=== PATIENT | male | born 1965 | race American Indian/Alaskan Native ===

== ENCOUNTER 2017-04-19 16:18 | Emergency (ER) | payer OTHER ==
[2017-04-19 16:24] VITALS: RESP 18; TEMP 98.2; O2SAT 100; BMI 32.3
--- NOTE | 2017-04-19 16:33 | ED PDOC ---
Arrival/HPI - General Time Seen by Provider: 04/19/17 16:30 Historian: Patient - History of Present Illness Narrative History of Present Illness (Text): 04/19/17 16:32 This 51 yo male presents to this ED c/o right ankle injury and pain x 7 days. Patient stated he tripped with cat at home, causing to twisted ankle "wrong". Denies dizziness, lynn, diplopia, dysarthria, sob, neck pain, cp, abdominal pain, knee pain, hip pain, back pain, or calf pain. Time/Duration: 1 week Quality: Aching Context: Home Past Medical History - Provider Review Nursing Documentation Reviewed: Yes - Cardiac Hx Hypertension: Yes - Pulmonary Hx Asthma: Yes - Neurological Hx Neurological Disorder: No - HEENT Hx HEENT Disorder: No - Renal Hx Renal Disorder: No - Endocrine/Metabolic Hx Endocrine Disorders: No - Hematological/Oncological Hx Blood Disorders: No - Integumentary Hx Dermatological Disorder: No - Musculoskeletal/Rheumatological Hx Musculoskeletal Disorders: No - Gastrointestinal Hx Gastrointestinal Disorders: No - Genitourinary/Gynecological Hx Genitourinary Disorders: No - Psychiatric Hx Psychophysiologic Disorder: No Hx Substance Use: No - Anesthesia Hx Anesthesia: No Hx Anesthesia Reactions: No Hx Malignant Hyperthermia: No Family/Social History - Physician Review Nursing Documentation Reviewed: Yes Family/Social History: No Known Family HX Smoking Status: Unknown If Ever Smoked Hx Alcohol Use: No Hx Substance Use: No Allergies/Home Meds Allergies/Adverse Reactions: Allergies Penicillins Allergy (Verified 12/14/15 01:22) RASH Review of Systems - Review of Systems Constitutional: Normal. absent: Fatigue, Weight Change, Fevers Eyes: Normal ENT: Normal Respiratory: Normal. absent: SOB, Cough Cardiovascular: Normal. absent: Chest Pain, Palpitations, Edema Gastrointestinal: Normal. absent: Abdominal Pain, Nausea, Vomiting Genitourinary Male: Normal Musculoskeletal: Other (right ankle pain) Skin: Normal. absent: Rash, Pruritis Neurological: Normal. absent: Headache, Dizziness, Focal Weakness, Speech Changes, Facial Droop, Disequilibrium, Seizure Endocrine: Normal Hemo/Lymphatic: Normal Psychiatric: Normal Physical Exam Vital Signs Temp Pulse Resp BP Pulse Ox 04/19/17 17:51 89 18 155/79 H 100 04/19/17 16:23 98.2 F 95 H 18 158/85 H 100 Temperature: Afebrile Blood Pressure: Normal Pulse: Regular Respiratory Rate: Normal Appearance: Positive for: Well-Appearing, Non-Toxic, Comfortable Pain Distress: None Mental Status: Positive for: Alert and Oriented X 3 - Systems Exam Head: Present: Atraumatic, Normocephalic Pupils: Present: PERRL Extroacular Muscles: Present: EOMI Conjunctiva: Present: Normal Mouth: Present: Moist Mucous Membranes Neck: Present: Normal Range of Motion Respiratory/Chest: Present: Clear to Auscultation, Good Air Exchange. No: Respiratory Distress, Accessory Muscle Use Cardiovascular: Present: Regular Rate and Rhythm, Normal S1, S2. No: Murmurs Abdomen: Present: Normal Bowel Sounds. No: Tenderness, Distention, Peritoneal Signs Back: Present: Normal Inspection Upper Extremity: Present: Normal Inspection, Normal ROM, NORMAL PULSES, Neurovascularly Intact, Capillary Refill < 2s. No: Cyanosis, Edema Lower Extremity: Present: NORMAL PULSES, Tenderness, Swelling, Deformity (right ankle), Neurovascularly Intact, Capillary Refill < 2 s. No: Edema, CALF TENDERNESS, Normal ROM, Erythema, Temperature Abnormalties Neurological: Present: GCS=15, CN II-XII Intact, Speech Normal, Motor Func Grossly Intact, Normal Sensory Function, Normal Cerebellar Funct, Gait Normal, Memory Normal Skin: Present: Warm, Dry, Normal Color. No: Rashes Psychiatric: Present: Alert, Oriented x 3 Medical Decision Making ED Course and Treatment: 04/19/17 17:25 Dr. Yepez Orthopedist is at bedside He recommended a posterior splint, crutches, and to call his office tomorrow for appointment next week. Patient understood plan. Re-evaluation Time: 18:07 Reassessment Condition: Re-examined, Improved - RAD Interpretation Narrative RAD Interpretations (Text): Accession No. : [id number] Patient Name / ID : DREW VIRAMONTES / [id number] Exam Date : 04/19/2017 17:02:24 ( Approved ) Study Comment : Sex / Age : M / 51Y Creator : Mariana Palma MD Dictator : Mariana Palma MD Generation Engineering Technologist : Blasting Machine Operator : Mariana Palma MD Approver2 : Report Date : 04/19/2017 17:47:30 My Comment : PROCEDURE: Radiographs of the right tibia and fibula. Radiographs of the right ankle. HISTORY: pain r/o fx COMPARISON: None available. FINDINGS: Oblique distal comminuted fibular fracture with intra-articular extension. Fracture deformity of the medial malleolus. Disruption of ankle mortise. Associated soft tissue swelling. No evidence of radiopaque foreign body. IMPRESSION: Oblique distal comminuted fibular fracture with intra-articular extension. Fracture deformity of the medial malleolus. Disruption of ankle mortise. Associated soft tissue swelling. Radiology Orders: 04/19/17 16:30 ANKLE RIGHT 3 VIEWS ROUTINE [RAD] Stat 04/19/17 16:39 TIBIA FIBULA RIGHT [RAD] Stat 04/19/17 16:40 CHEST ONE VIEW [RAD] Stat - Medication Orders Current Medication Orders: Discontinued Medications Ketorolac Tromethamine (Toradol) 15 mg IM STAT STA Stop: 04/19/17 16:32 Last Admin: 04/19/17 17:27 Dose: 15 mg - Procedure PROCEDURE NOTE (Text): PROCEDURE: SPLINT APPLICATION Applied by Manager Order, supervised by Emergency Provider. Location: right posterior short leg splint Procedure: The area of the splint was appropriately positioned. A 4 inch ortho glass posterior splint was applied. Post-procedure: Good position. Neurovascular status remains intact. Capillary refill < 2 sec. Patient tolerated the procedure well with no immediate complications. Disposition/Present on Arrival - Present on Arrival Any Indicators Present on Arrival: No History of DVT/PE: No History of Uncontrolled Diabetes: No Urinary Catheter: No History Surgical Site Infection Following: None - Disposition Have Diagnosis and Disposition been Completed?: Yes Diagnosis: Fracture of distal fibula Disposition: HOME/ ROUTINE Disposition Time: 18:08 Patient Plan: Discharge Condition: GOOD Discharge Instructions (ExitCare): Ankle Fracture (ED) Additional Instructions: Call Dr. Yepez Office to set up appointment for next week. Keep splint clean and dry, and use crutches. Keep ankle elvated, rest. Return to emergency if symptoms worsen. Prescriptions: Ibuprofen [Motrin] 600 mg PO Q8 PRN #20 tab PRN Reason: Pain, Severe (8-10) Referrals: Sveta Weaver MD [Primary Care Provider] - Follow up with primary Raul Yepez DO [Staff Provider] - Follow up with primary Forms: WORK NOTE
--- NOTE | 2017-04-19 17:36 | RAD ---
HISTORY: cough COMPARISON: Chest x-ray performed 12/14/15 TECHNIQUE: Chest, one view. FINDINGS: LUNGS: No focal consolidation. Please note that chest x-ray has limited sensitivity for the detection of pulmonary masses. PLEURA: No significant pleural effusion identified. No definite pneumothorax . CARDIOVASCULAR: Heart size appears within normal limits. OSSEOUS STRUCTURES: Degenerative changes. VISUALIZED UPPER ABDOMEN: Mild elevation of the right hemidiaphragm. OTHER FINDINGS: None. IMPRESSION: No focal consolidation, significant pleural effusion, or definite pneumothorax identified.
--- NOTE | 2017-04-19 17:48 | RAD ---
PROCEDURE: Radiographs of the right tibia and fibula. Radiographs of the right ankle. HISTORY: pain r/o fx COMPARISON: None available. FINDINGS: Oblique distal comminuted fibular fracture with intra-articular extension. Fracture deformity of the medial malleolus. Disruption of ankle mortise. Associated soft tissue swelling. No evidence of radiopaque foreign body. IMPRESSION: Oblique distal comminuted fibular fracture with intra-articular extension. Fracture deformity of the medial malleolus. Disruption of ankle mortise. Associated soft tissue swelling. If symptoms persist, or if there is continued clinical concern, x-ray follow-up in 7-10 days should be considered.
[2017-04-19 17:52] VITALS: BP 155/79; PULSE 89
== END 2017-04-19 18:35 | disposition home or self-care (01) ==
LOC: ED 16:18
DX: S82.491A Other fracture of shaft of right fibula, initial encounter for closed fracture (principal); W01.0XXA Fall on same level from slipping, tripping and stumbling without subsequent striking against object, initial encounter; Y93.89 Activity, other specified; Y92.009 Unspecified place in unspecified non-institutional (private) residence as the place of occurrence of the external cause
CPT/HCPCS: 29515; 71010; 73590; 73610; 96372; 99285; J1885

== ENCOUNTER 2017-04-24 11:38 | Observation (INO) | payer OTHER ==
[2017-04-24 11:46] VITALS: BMI 30.8
--- NOTE | 2017-04-24 11:54 | ED PDOC ---
Arrival/HPI - General Chief Complaint: Lower Extremity Problem/Injury Time Seen by Provider: 04/24/17 11:48 Historian: Patient - History of Present Illness Narrative History of Present Illness (Text): 04/24/17 11:50 A 51 year old male presents to the emergency department for evaluation after a mechanical fall. Patient notes he hit his left knee but denies any head trauma, loss of consciousness, back pain, neck pain, other trauma or injuries at this time. Patient states he did not hit his right ankle, which was broken from a previous fall. He mentions he is scheduled for right ankle surgery tomorrow. PMD: Dr. Melvin Time/Duration: Prior to Arrival Symptom Onset: Sudden Symptom Course: Unchanged Quality: Other Activities at Onset: Light Context: Home Past Medical History - Provider Review Nursing Documentation Reviewed: Yes - Cardiac Hx Hypertension: Yes - Pulmonary Hx Asthma: Yes - Neurological Hx Neurological Disorder: No - HEENT Hx HEENT Disorder: No - Renal Hx Renal Disorder: No - Endocrine/Metabolic Hx Endocrine Disorders: No - Hematological/Oncological Hx Blood Disorders: No - Integumentary Hx Dermatological Disorder: No - Musculoskeletal/Rheumatological Hx Musculoskeletal Disorders: No - Gastrointestinal Hx Gastrointestinal Disorders: No - Genitourinary/Gynecological Hx Genitourinary Disorders: No - Psychiatric Hx Psychophysiologic Disorder: No Hx Substance Use: No - Anesthesia Hx Anesthesia: No Hx Anesthesia Reactions: No Hx Malignant Hyperthermia: No Family/Social History - Physician Review Nursing Documentation Reviewed: Yes Family/Social History: Unknown Family HX Smoking Status: Unknown If Ever Smoked Hx Alcohol Use: No Hx Substance Use: No Allergies/Home Meds Allergies/Adverse Reactions: Allergies Penicillins Allergy (Verified 12/14/15 01:22) RASH Home Medications: Home Meds Medication Instructions Recorded Confirmed Budesonide/Formoterol Fumarate 1 puff IH BID 04/24/17 04/24/17 [Symbicort] amLODIPine [Norvasc] 10 mg PO DAILY 04/24/17 04/24/17 hydroCHLOROthiazide [Hydrodiuril] 25 mg PO DAILY 04/24/17 04/24/17 Physical Exam - Physical Exam Narrative Physical Exam (Text): - Review of Systems Constitutional: Normal. absent: Fatigue, Weight Change, Fevers Eyes: Normal ENT: Normal Respiratory: Normal absent: SOB, Cough, Sputum Cardiovascular: Normal absent: Chest pain, Palpitations, Syncope Gastrointestinal: Normal absent: Abdominal pain, Diarrhea, Nausea, Vomiting Genitourinary: Normal. absent: Dysuria, Frequency, Hematuria Musculoskeletal: Left knee pain. absent: Arthralgias, Back Pain, Neck Pain Skin: Normal Neurological: Normal absent: Focal Weakness Endocrine: Normal Hemo/Lymphatic: Normal Psychiatric: Normal - Physical exam Patient appears age appropriate, speaking full sentences without difficulty - Systems Exam Head: Present: Atraumatic, Normocephalic Pupils: Present: PERRL Extraocular Muscles: Present: EOMI Conjunctiva: Present: Normal Mouth: Present: Moist Mucous Membranes Neck: Present: Normal Range of Motion. No: MIDLINE TENDERNESS, Paraspinal Tenderness Respiratory/Chest: Present: Clear to Auscultation, Good Air Exchange. No: Respiratory Distress, Accessory Muscle Use, Tachypneic Cardiovascular: Present: Regular Rate and Rhythm, Normal S1, S2, Peripheral Pulses Present. No: Murmurs Abdomen: Present: Normal Bowel Sounds, No: Tenderness, Peritoneal Signs, Rebound, Guarding, Distention Back: Present: Normal Inspection. No: Midline Tenderness, Paraspinal Tenderness Upper Extremity: Present: Normal Inspection. No: Cyanosis, Edema Lower Extremity: Normal pulse to the right ankle. Neurovascular intact. Left foot, ankle and hip with no tenderness/pain and full active/passive range of motion. Left knee with limited range of motion secondary to pain, but no swelling and negative anterior and posterior drawer test. No: Edema Neurological: Present: GCS=15, Speech Normal, cranial nerves II through XII fully intact with no cerebellar abnormality, neuro-sensory fully intact. No focal neurological deficits. Skin: Present: Warm, Dry, Normal Color. No: Rashes Lymphatic: Present: OX3, NI, NC Psychiatric: Present: Alert, Oriented x 3, Normal Insight, Normal Concentration Vital Signs Reviewed: Yes Vital Signs Temp Pulse Resp BP Pulse Ox 04/24/17 14:45 98.2 F 95 H 18 171/78 H 100 04/24/17 11:45 98.1 F 92 H 18 134/89 100 Temperature: Afebrile Blood Pressure: Normal Pulse: Regular Respiratory Rate: Normal Appearance: Positive for: Well-Appearing, Non-Toxic, Comfortable Pain Distress: None Mental Status: Positive for: Alert and Oriented X 3 Medical Decision Making ED Course and Treatment: 04/24/17 11:50 Impression: A 51 year old male with left knee pain after a mechanical fall. On physical examination the patient has limited range of motion ot the left knee secondary to pain but there is no swelling and anterior and posterior drawer test is negative. R. ankle with splint. Neurovasc. intact. Differential Diagnosis include but are not limited to: sprain vs. strain vs. fracture Plan: -- EKG -- Left Knee X-ray -- Labs -- Toradol -- Reassess and disposition Prior Visits: Notes and results from previous visits were reviewed. The patient was in the emergency department on 04/19/17 and was diagnosed with oblique distal comminuted fibular fracture with ankle mortise disruption. Patient was evaluated by Dr. Mcpherson (orthopedist.) Progress Notes: EKG: Ordered, reviewed, and independently interpreted the EKG. Rate : 94 BPM Rhythm : NSR Interpretation : No ST-segment elevations, normal intervals. Interpreted by me. 04/24/17 13:25 Left Knee X-ray: Creator : Raul Khan MD IMPRESSION: Normal radiographs of the left knee. 04/24/17 14:[address] Mcpherson, who states he will see the patient before disposition. 04/24/17 14:[address] Howell, pt unable to ambulate due to b/l LE injury. Recommends obs in the hospital under hospitalist valerie Watters earlier, who states she is on blue list and cannot admit dw Dr. Bruno, accepted to his service - Lab Interpretations Lab Results: 04/24/17 12:10 04/24/17 12:10 Lab Results 04/24/17 12:10: Sodium 137, Potassium 4.0, Chloride 96 L, Carbon Dioxide 30, Anion Gap 15, BUN 21, Creatinine 1.1, Est GFR ( Amer) > 60, Est GFR (Non- Af Amer) > 60, Random Glucose 97, Calcium 10.0, Total Bilirubin 0.5, AST 31, ALT 36, Alkaline Phosphatase 56, Total Protein 8.7 H, Albumin 4.4, Globulin 4.3 , Albumin/Globulin Ratio 1.0 L 04/24/17 12:10: PT 11.1, INR 1.03, APTT 30.3 04/24/17 12:10: WBC 11.4 H D, RBC 4.86, Hgb 14.7, Hct 43.1, MCV 88.7, MCH 30.2, MCHC 34.1, RDW 14.0, Plt Count 299, MPV 9.9, Gran % 79.7 H, Lymph % (Auto) 11.0 L, [place] % (Auto) 5.7, Eos % (Auto) 3.5, Baso % (Auto) 0.1, Gran # 9.08 H, Lymph # 1.3, [place] # 0.7 H, Eos # 0.4, Baso # 0.01 I have reviewed the lab results: Yes - RAD Interpretation Radiology Orders: 04/24/17 12:00 KNEE WITH PATELLA LEFT 3 VIEW [RAD] Stat - Medication Orders Current Medication Orders: Discontinued Medications Ketorolac Tromethamine (Toradol) 15 mg IVP STAT STA Stop: 04/24/17 12:01 Last Admin: 04/24/17 12:07 Dose: 15 mg Morphine Sulfate (Morphine) 4 mg IVP STAT STA Stop: 04/24/17 13:14 Last Admin: 04/24/17 13:56 Dose: 4 mg - Scribe Statement The provider has reviewed the documentation as recorded by the Prem De Dios Provider Scribe Attestation: All medical record entries made by the Bettyibyo were at my direction and personally dictated by me. I have reviewed the chart and agree that the record accurately reflects my personal performance of the history, physical exam, medical decision making, and the department course for this patient. I have also personally directed, reviewed, and agree with the discharge instructions and disposition. Disposition/Present on Arrival - Present on Arrival Any Indicators Present on Arrival: No History of DVT/PE: No History of Uncontrolled Diabetes: No Urinary Catheter: No History of Decub. Ulcer: No History Surgical Site Infection Following: None - Disposition Have Diagnosis and Disposition been Completed?: Yes Diagnosis: Inability to ambulate due to knee Disposition: HOSPITALIZED Disposition Time: 12:15 Patient Plan: Observation Patient Problems: Current Active Problems Problem Status Onset Inability to ambulate due to knee Acute Condition: STABLE Discharge Instructions (ExitCare): Knee Pain (ED) Referrals: PCP,NO [Primary Care Provider] - Follow up with primary
[2017-04-24 12:42] LABS: BASO # 0.01 K/mm3 (0.0-2.0); BASO % 0.1 % (0.0-3.0); EOS # 0.4 (0.0-0.7); EOS % 3.5 % (1.5-5.0); GRAN # 9.08 (1.4-6.5); GRAN % 79.7 % (50.0-68.0); HEMOGLOBIN 14.7 gm/dL (14.0-18.0); LYMPH # 1.3 (1.2-3.4); MEAN CELL VOLUME 88.7 fL (80.0-105.0); MEAN CORPUSCULAR HEMOGLOBIN 30.2 pg (25.0-35.0); MEAN CORPUSCULAR HGB CONC 34.1 g/dl (31.0-37.0); MEAN PLATELET VOLUME 9.9 fl (7.0-11.0); MONO # 0.7 (0.1-0.6); MONO % 5.7 % (1.0-6.0); PLATELET COUNT 299 10^3/uL (120.0-450.0); RBC 4.86 10^6/uL (3.5-6.1); WHITE BLOOD COUNT 11.4 10^3/ul (4.5-11.0)
[2017-04-24 12:46] LABS: INR 1.03 (0.93-1.08); PARTIAL THROMBOPLASTIN TIME 30.3 Seconds (23.7-30.8); PROTHROMBIN TIME 11.1 Seconds (9.9-11.8)
[2017-04-24 12:50] LABS: ALBUMIN 4.4 g/dL (3.0-4.8); ALT/SGPT 36 U/L (7-56); AST/SGOT 31 U/L (15-59); BLOOD UREA NITROGEN 21 mg/dL (7-21); GFR AFRICAN-AMERICAN > 60; GFR NON-AFRICAN AMERICAN > 60
[2017-04-24] MEDS ORDERED: Morphine 4 mg/ml ISec IVP STA (13:13)
--- NOTE | 2017-04-24 13:24 | RAD ---
PROCEDURE: Left Knee Radiographs. HISTORY: Pain. COMPARISON: None. FINDINGS: BONES: Normal. No fracture. JOINTS: Normal. No osteoarthritis. JOINT EFFUSION: None. OTHER FINDINGS: The patella is normal IMPRESSION: Normal radiographs of the left knee.
[2017-04-24] MEDS ORDERED: Morphine 2 mg/ml ISec IVP PRN (16:03)
[2017-04-24] MEDS ORDERED: Albuterol-Ipratrop 3 mg / 0.5 (3 ml) UD IH PRN (16:09)
--- NOTE | 2017-04-24 16:59 | RAD ---
HISTORY: Foci ptosis. Portable study 16:31. COMPARISON: No prior. FINDINGS: LUNGS: No active pulmonary disease. PLEURA: No significant pleural effusion identified, no pneumothorax apparent. CARDIOVASCULAR: No radiographic findings to suggest acute or significant cardiovascular disease. OSSEOUS STRUCTURES: No significant abnormalities. VISUALIZED UPPER ABDOMEN: Normal. OTHER FINDINGS: None. IMPRESSION: No active disease.
--- NOTE | 2017-04-24 17:35 | CARD ---
APPROVED REPORT EKG Measurement Heart [id number] <Conclusion> Normal sinus rhythm Moderate voltage criteria for LVH, may be normal variant Borderline ECG
--- NOTE | 2017-04-24 17:48 | CP.PCM.HP ---
<JANA QUIROZ - Last Filed: 04/24/17 17:44> History of Present Illness - History of Present Illness History of Present Illness: 51 yo man presenting to the ED with complaints of L knee pain after a fall. The pt states that he was en route to a pre-op visit at the orthopedics clinic for his R ankle fx when he fell, injuring his L knee. The patient injured his R ankle 2 weeks ago when he tripped over his cat. He was seen in the ED after pain persisted and found to have R bi-malleolar fx on XR. He was scheduled for ORIF with Dr. Velazquez. Today, he states that he misplaced a crutch and tripped, landing on his L knee. He was advised to report to the ED for evaluation. He was unable to bear weight on either foot following the fall. He complains only of mild L knee pain and swelling. The pt denies hitting his head. He states that the fall was not foreshadowed by lightheadedness, dizziness , vision changes, or headache. He denies loss of consciousness, fever, cough, dysuria, diarrhea. He has not taken pain medication today. His pain has been managed at home with 600 mg Motrin prn with good control. 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 He lives on the 4th floor of his building , which has elevators. PMH: HTN, asthma Meds: HCTZ, amlodipine, albuterol All: Penicillin FHx: mother MD; father , lung cancer Social: pt drinks 5-6 beers per week. Denies smoking. Denies illicit drug use. Medications: Amlodipine 10 mg PO daily HCTZ 25 mg PO daily Symbicort Present on Admission - Present on Admission Any Indicators Present on Admission: No Review of Systems - Review of Systems All systems: reviewed and no additional remarkable complaints except (hpi) Past Patient History - Past Social History Smoking Status: Unknown If Ever Smoked - CARDIAC Hx Hypertension: Yes - PULMONARY Hx Asthma: Yes - NEUROLOGICAL Hx Neurological Disorder: No - HEENT Hx HEENT Problems: No - RENAL Hx Chronic Kidney Disease: No - ENDOCRINE/METABOLIC Hx Endocrine Disorders: No - HEMATOLOGICAL/ONCOLOGICAL Hx Blood Disorders: No - INTEGUMENTARY Hx Dermatological Problems: No - MUSCULOSKELETAL/RHEUMATOLOGICAL Hx Musculoskeletal Disorders: No - GASTROINTESTINAL Hx Gastrointestinal Disorders: No - GENITOURINARY/GYNECOLOGICAL Hx Genitourinary Disorders: No - PSYCHIATRIC Hx Psychophysiologic Disorder: No Hx Substance Use: No - SURGICAL HISTORY Hx Surgeries: No - ANESTHESIA Hx Anesthesia: No Hx Anesthesia Reactions: No Hx Malignant Hyperthermia: No Meds Allergies/Adverse Reactions: Allergies Allergy/AdvReac Type Severity Reaction Status Date / Time Penicillins Allergy RASH Verified 12/14/15 01:22 Physical Exam - Constitutional Appears: No Acute Distress - Head Exam Head Exam: ATRAUMATIC, NORMOCEPHALIC - Eye Exam Eye Exam: EOMI, Normal appearance, PERRL - ENT Exam ENT Exam: Mucous Membranes Moist - Respiratory Exam Respiratory Exam: Clear to Auscultation Bilateral. absent: Rales, Rhonchi, Wheezes - Cardiovascular Exam Cardiovascular Exam: RRR, +S1, +S2. absent: Diastolic murmur, Gallop, Rubs, Systolic Murmur - GI/Abdominal Exam GI & Abdominal Exam: Normal Bowel Sounds, Soft. absent: Distended, Guarding, Tenderness - Extremities Exam Additional comments: Right ankle currently wrapped with MEKHI bandage. Left knee with minor swelling and pain with AROM/PROM. Positive valgus strain. Negative posterior/anterior drawer test. Left hip ROM WNL. - Neurological Exam Neurological exam: Alert, Oriented x3 - Skin Skin Exam: Dry, Intact, Normal Color, Warm Results - Vital Signs Recent Vital Signs: Last Vital Signs Temp 98.2 F 04/24/17 14:45 Pulse 91 H 04/24/17 17:44 Resp 18 04/24/17 17:44 BP 125/78 04/24/17 17:44 Pulse Ox 100 04/24/17 17:44 - Labs Result Diagrams: 04/24/17 12:10 04/24/17 12:10 Assessment & Plan - Assessment and Plan (Free Text) Assessment: 51 yo M with pMHx of HTN and asthma presents with Left knee pain. Pt will be admitted for R ankle surgery tomorrow and Left knee pain. 1. Left knee pain -Ortho consulted -Motrin 600 mg prn for mild to moderate pain -Morphine 2q6 prn for severe pain -WBC 11.4 - UA, CXR ordered r/o infection 2. Right ankle fracture -Scheduled for surgery tomorrow with ortho -Defer to ortho for tx -NPO after midnight 3. HTN -Cont amlodipine and HCTZ -Heart healthy diet 4. Asthma -Duoneb prn 5. GI/DVT PPx - Heparin SC - Protonix Pt discussed and seen in detail with Dr. Bruno. <Kasey Bruno - Last Filed: 04/24/17 23:01> Results - Vital Signs Recent Vital Signs: Last Vital Signs Temp 97.5 F L 04/24/17 18:53 Pulse 96 H 04/24/17 18:53 Resp 18 04/24/17 18:53 BP 144/94 H 04/24/17 18:53 Pulse Ox 100 04/24/17 17:44 - Labs Result Diagrams: 04/24/17 12:10 04/24/17 12:10 Attending/Attestation - Attestation I have personally seen and examined this patient.: Yes I have fully participated in the care of the patient.: Yes I have reviewed all pertinent clinical information: Yes Notes (Text): 04/24/17 22:53 51 year old male with past medical history of hypertension, asthma and recent right ankle fracture presents s/p fall with left knee pain. Left knee xray is negative. Recent right ankle and tibula/fibula xrays were also reviewed. Patient reports he was scheduled for OR tomorrow. Orthopedics evaluation is requested. NPO after midnight for possible surgery tomorrow. Continue with morphine prn for pain. Continue with home medications for hypertension and duonebs for asthma. Mild leukocytosis noted; likely reactive. UA/CXR is ordered. Kasey Bruno MD Hospitalist.
[2017-04-24] MEDS: Morphine 2 mg/ml ISec IVP PRN (22:14)
[2017-04-25] MEDS: Morphine 2 mg/ml ISec IVP PRN ×2 (05:36→14:08)
[2017-04-25] MEDS ORDERED: Propofol 10 mg/ml Inj (20 ML) ONE (07:33)
[2017-04-25] MEDS ORDERED: Sevoflurane - Inhalation Anesthetic Liq (250 ml) ONE (07:33)
[2017-04-25] MEDS ORDERED: Midazolam 2 MG/2 ML VIAL ONE (07:33)
[2017-04-25] MEDS ORDERED: Lidocaine 2% Inj (20ml) ONE (07:36)
[2017-04-25] MEDS ORDERED: Succinylcholine 200 mg/10 ml Inj IV ONE (07:38)
[2017-04-25] MEDS ORDERED: Rocuronium 10 mg/ml (5 ml) ONE (07:38)
[2017-04-25] MEDS ORDERED: MethylPREDNISolone Depo 40 mg/ml Inj ONE (07:45)
[2017-04-25] MEDS ORDERED: Neostigmine Methylsulfate 3mg/3ml Syringe IV ONE (08:30)
[2017-04-25] MEDS ORDERED: Glycopyrrolate 0.2 mg/ml (2ml vial) ONE (08:31)
[2017-04-25] MEDS ORDERED: Bupivacaine 0.5% Inj(30mL) ONE (08:33)
[2017-04-25] MEDS ORDERED: Lactated Ringer's 1,000 ML IV SCH (10:24)
[2017-04-25] MEDS ORDERED: HYDROmorphone 0.5 mg/0.5 ml ISec IVP PRN (10:24)
[2017-04-25] MEDS ORDERED: HYDROmorphone 0.5 mg/0.5 ml ISec ONE (10:54)
--- NOTE | 2017-04-25 11:10 | RAD ---
PROCEDURE: Fluoroscopy up to 1 hour HISTORY: ORIF RIGHT ANKLE COMPARISON: TECHNIQUE: Fluoroscopy up to 1 hour. Six images were submitted FINDINGS: The study shows internal fixation of a distal fibular fracture. There is anatomic alignment IMPRESSION: As above
[2017-04-25] MEDS ORDERED: HYDROmorphone 1 mg/ml ISec IVP PRN (16:01)
--- NOTE | 2017-04-25 16:06 | CP.PCM.PN ---
<GABRIELLAJANA - Last Filed: 04/25/17 16:03> Subjective - Date & Time of Evaluation Date of Evaluation: 04/25/17 Time of Evaluation: 10:00 - Subjective Subjective: Medicine Progress Note: Pt seen and examined at bedside. Pt is post op ORIF right ankle. Pt states that left knee is still painful. Pt discussed with Dr. Yepez that Left knee pain is likely due to gout. Pt states that he is currently unable to ambulate with crutches due to pain. Pt denies CP, SOB, n/v/f, chills, and abdominal pain. Objective - Vital Signs/Intake and Output Vital Signs (last 24 hours): Temp Pulse Resp BP Pulse Ox 98.1 F 88 16 147/82 99 04/25/17 11:20 04/25/17 11:20 04/25/17 11:20 04/25/17 11:20 04/25/17 11:20 Intake and Output: 04/25/17 04/25/17 06:59 18:59 Intake Total 540 0 Output Total 800 Balance -260 0 - Medications Medications: Current Medications Albuterol/Ipratropium (Duoneb 3 Mg/0.5 Mg (3 Ml) Ud) 3 ml IH Q2H PRN PRN Reason: Shortness of Breath Amlodipine Besylate (Norvasc) 10 mg PO DAILY [facility] Last Admin: 04/25/17 10:49 Dose: Not Given Colchicine (Colocrys) 0.6 mg PO DAILY [facility] Last Admin: 04/25/17 12:39 Dose: 0.6 mg Heparin Sodium (Porcine) (Heparin) 5,000 units SC Q12 [facility] PRN Reason: Protocol Last Admin: 04/24/17 22:14 Dose: 5,000 units Hydrochlorothiazide (Hydrodiuril) 25 mg PO DAILY [facility] Last Admin: 04/25/17 10:49 Dose: Not Given Hydromorphone HCl (Dilaudid) 1 mg IVP Q4H PRN PRN Reason: Pain, severe (8-10) Ibuprofen (Motrin Tab) 600 mg PO Q6H PRN PRN Reason: Pain, Mild (1-3) - Labs Labs: PT 11.1 Seconds (9.9-11.8) 04/24/17 12:10 INR 1.03 (0.93-1.08) 04/24/17 12:10 APTT 30.3 Seconds (23.7-30.8) 04/24/17 12:10 - Head Exam Head Exam: ATRAUMATIC, NORMOCEPHALIC - Eye Exam Eye Exam: EOMI, PERRL - ENT Exam ENT Exam: Mucous Membranes Moist - Neck Exam Neck Exam: Full ROM - Respiratory Exam Respiratory Exam: Clear to Ausculation Bilateral. absent: Rales, Rhonchi, Wheezes - Cardiovascular Exam Cardiovascular Exam: RRR, +S1, +S2. absent: Diastolic murmur, Gallop, Rubs, Murmur - GI/Abdominal Exam GI & Abdominal Exam: Soft. absent: Distended, Guarding, Tenderness - Extremities Exam Additional comments: Right ankle currently wrapped and splinted post op ORIF. Left knee with minor swelling and palpable tenderness. - Neurological Exam Neurological Exam: Alert, Awake, Oriented x3 - Skin Skin Exam: Dry, Intact, Normal Color, Warm Assessment and Plan - Assessment and Plan (Free Text) Assessment: 51 yo M with pMHx of HTN and asthma presents with Left knee pain. Pt admitted for post op R ankle ORIF and Left knee pain. 1. Left knee pain - Gout -Ortho consulted - Recommended Colchicine 0.6 mg PO daily -Motrin 600 mg prn for mild to moderate pain -Dilaudid 1 mg IVP q4h for severe pain -WBC 11.4 - UA, CXR negative -F/u with PT and OT consultation 2. Right ankle fracture -Post op ORIF right ankle -Per ortho, pt can be DC under medicine team discretion 3. HTN -Cont amlodipine and HCTZ -Heart healthy diet 4. Asthma -Duoneb prn 5. GI/DVT PPx - Heparin SC - Protonix Pt discussed and seen in detail with Dr. Fulton. <Jenise Fulton - Last Filed: 04/25/17 17:38> Objective - Vital Signs/Intake and Output Vital Signs (last 24 hours): Temp Pulse Resp BP Pulse Ox 98.1 F 88 16 131/81 99 04/25/17 11:20 04/25/17 11:20 04/25/17 11:20 04/25/17 16:38 04/25/17 11:20 Intake and Output: 04/25/17 04/25/17 06:59 18:59 Intake Total 540 0 Output Total 800 Balance -260 0 - Medications Medications: Current Medications Albuterol/Ipratropium (Duoneb 3 Mg/0.5 Mg (3 Ml) Ud) 3 ml IH Q2H PRN PRN Reason: Shortness of Breath Amlodipine Besylate (Norvasc) 10 mg PO DAILY [facility] Last Admin: 04/25/17 16:38 Dose: 10 mg Colchicine (Colocrys) 0.6 mg PO DAILY [facility] Last Admin: 04/25/17 12:39 Dose: 0.6 mg Heparin Sodium (Porcine) (Heparin) 5,000 units SC Q12 [facility] PRN Reason: Protocol Last Admin: 04/24/17 22:14 Dose: 5,000 units Hydrochlorothiazide (Hydrodiuril) 25 mg PO DAILY [facility] Last Admin: 04/25/17 16:38 Dose: 25 mg Hydromorphone HCl (Dilaudid) 1 mg IVP Q4H PRN PRN Reason: Pain, severe (8-10) Last Admin: 04/25/17 16:39 Dose: 1 mg Ibuprofen (Motrin Tab) 600 mg PO Q6H PRN PRN Reason: Pain, Mild (1-3) - Labs Labs: PT 11.1 Seconds (9.9-11.8) 04/24/17 12:10 INR 1.03 (0.93-1.08) 04/24/17 12:10 APTT 30.3 Seconds (23.7-30.8) 04/24/17 12:10 Attending/Attestation - Attestation I have personally seen and examined this patient.: Yes I have fully participated in the care of the patient.: Yes I have reviewed all pertinent clinical information, including history, physical exam and plan: Yes Notes (Text): 04/25/17 17:34 Attending note; Patient seen and examined with the resident. Patient is a 51 year old male with past medical history of hypertension, asthma and recent right ankle fracture presents s/p fall with left knee pain. Left knee xray is negative. Status post ORIF right ankle today. Still with significant pain in the surgical site . Not able to ambulate because of left knee pain .status post steroidal injection in the left knee . Started on colchicine . Continue IV Dilaudid for pain. Possible discharge home tomorrow if pain improves and able to ambulate with crutches. Upon discharge the patient will follow-up with [facility] clinic. Follow-up with orthopedics Dr. Yepez. 04/25/17 17:38
[2017-04-25] MEDS: HYDROmorphone 1 mg/ml ISec IVP PRN ×2 (16:39→20:57)
[2017-04-26] MEDS: HYDROmorphone 1 mg/ml ISec IVP PRN ×3 (02:58→14:01)
[2017-04-26 08:40] VITALS: PULSE 76; RESP 20; TEMP 98.8; O2SAT 97
[2017-04-26 09:40] VITALS: BP 141/84
[2017-04-26 10:20] LABS: HEMOGLOBIN 13.4 gm/dL (14.0-18.0); MEAN CELL VOLUME 87.7 fL (80.0-105.0); MEAN CORPUSCULAR HEMOGLOBIN 29.5 pg (25.0-35.0); MEAN CORPUSCULAR HGB CONC 33.7 g/dl (31.0-37.0); MEAN PLATELET VOLUME 9.9 fl (7.0-11.0); RBC 4.54 10^6/uL (3.5-6.1); RED CELL DISTRIBUTION WIDTH 13.9 % (11.5-14.5); WHITE BLOOD COUNT 12.8 10^3/ul (4.5-11.0)
[2017-04-26 10:36] LABS: BLOOD UREA NITROGEN 13 mg/dL (7-21); CALCIUM 9.9 mg/dL (8.4-10.5); GFR AFRICAN-AMERICAN > 60; GFR NON-AFRICAN AMERICAN > 60
[2017-04-26] MEDS ORDERED: Pneumococcal 23-Valent Vaccine IM ONE (16:36)
--- NOTE | 2017-04-26 20:23 | CP.PCM.DIS ---
<JANA QUIROZ - Last Filed: 04/26/17 20:15> Provider - Provider Date of Admission: 04/24/17 14:51 Attending physician: Jenise Fulton MD Primary care physician: NO PRIMARY CARE PROVIDER Consults: Orthopedics Time Spent in preparation of Discharge (in minutes): 45 Hospital Course - Lab Results Lab Results: Micro Results 04/25/17 12:49 Other: Please Indicate Gram Stain - Final 04/25/17 12:49 Other: Please Indicate Body Fluid Culture - Preliminary NO GROWTH AFTER 24 HOURS Most Recent Lab Values WBC 12.8 10^3/ul (4.5-11.0) H 04/26/17 09:50 RBC 4.54 10^6/uL (3.5-6.1) 04/26/17 09:50 Hgb 13.4 gm/dL (14.0-18.0) L 04/26/17 09:50 Hct 39.8 % (42.0-52.0) L 04/26/17 09:50 MCV 87.7 fL (80.0-105.0) 04/26/17 09:50 MCH 29.5 pg (25.0-35.0) 04/26/17 09:50 MCHC 33.7 g/dl (31.0-37.0) 04/26/17 09:50 RDW 13.9 % (11.5-14.5) 04/26/17 09:50 Plt Count 292 10^3/uL (120.0-450.0) 04/26/17 09:50 MPV 9.9 fl (7.0-11.0) 04/26/17 09:50 Gran % 79.7 % (50.0-68.0) H 04/24/17 12:10 Lymph % (Auto) 11.0 % (22.0-35.0) L 04/24/17 12:10 [place] % (Auto) 5.7 % (1.0-6.0) 04/24/17 12:10 Eos % (Auto) 3.5 % (1.5-5.0) 04/24/17 12:10 Baso % (Auto) 0.1 % (0.0-3.0) 04/24/17 12:10 Gran # 9.08 (1.4-6.5) H 04/24/17 12:10 Lymph # 1.3 (1.2-3.4) 04/24/17 12:10 [place] # 0.7 (0.1-0.6) H 04/24/17 12:10 Eos # 0.4 (0.0-0.7) 04/24/17 12:10 Baso # 0.01 K/mm3 (0.0-2.0) 04/24/17 12:10 PT 11.1 Seconds (9.9-11.8) 04/24/17 12:10 INR 1.03 (0.93-1.08) 04/24/17 12:10 APTT 30.3 Seconds (23.7-30.8) 04/24/17 12:10 Sodium 137 mmol/L (132-148) 04/26/17 09:50 Potassium 3.9 mmol/L (3.6-5.0) 04/26/17 09:50 Chloride 95 mmol/L (98-107) L 04/26/17 09:50 Carbon Dioxide 29 mmol/L (21-33) 04/26/17 09:50 Anion Gap 17 (10-20) 04/26/17 09:50 BUN 13 mg/dL (7-21) 04/26/17 09:50 Creatinine 1.0 mg/dL (0.5-1.4) 04/26/17 09:50 Est GFR ( Amer) > 60 04/26/17 09:50 Est GFR (Non-Af Amer) > 60 04/26/17 09:50 Random Glucose 138 mg/dL (70-110) H 04/26/17 09:50 Calcium 9.9 mg/dL (8.4-10.5) 04/26/17 09:50 Total Bilirubin 0.5 mg/dL (0.2-1.3) 04/24/17 12:10 AST 31 U/L (15-59) 04/24/17 12:10 ALT 36 U/L (7-56) 04/24/17 12:10 Alkaline Phosphatase 56 U/L (38-133) 04/24/17 12:10 Total Protein 8.7 g/dL (5.8-8.3) H 04/24/17 12:10 Albumin 4.4 g/dL (3.0-4.8) 04/24/17 12:10 Globulin 4.3 gm/dL 04/24/17 12:10 Albumin/Globulin Ratio 1.0 (1.1-1.8) L 04/24/17 12:10 - Hospital Course Hospital Course: Pt is a 51 yo man presenting to the ED with complaints of L knee pain after a fall. The pt states that he was en route to a pre-op visit at the orthopedics clinic for his R ankle fx when he fell, injuring his L knee. The patient injured his R ankle 2 weeks ago when he tripped over his cat. He was seen in the ED after pain persisted and found to have R bi-malleolar fx on XR. He was scheduled for ORIF with Dr. Velazquez. Today, he states that he misplaced a crutch and tripped, landing on his L knee. He was advised to report to the ED for evaluation. He was unable to bear weight on either foot following the fall. He complains only of mild L knee pain and swelling. The pt denies hitting his head. He states that the fall was not foreshadowed by lightheadedness, dizziness , vision changes, or headache. He denies loss of consciousness, fever, cough, dysuria, diarrhea. He has not taken pain medication today. His pain has been managed at home with 600 mg Motrin prn with good control. 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 He lives on the 4th floor of his building , which has elevators. Basic labs and knee x-ray were obtained in the ED and showed a slightly elevated WBC, knee xray was negative. UA and CXR were obtained to r/o infectious cause of increased WBC count. Both were negative, leukocytosis likely 2/2 stress/injury. Ortho was consulted for left knee pain and diagnosed pain 2/2 to gout. Pt was given colchicine. The pt reported improvement with pain. Pt underwent ORIF with ortho while admitted. PT evaluated pt and recommended the pt be discharged home with outpatient PT follow up. Today, pt was seen and examined at bedside. Pt reports pain controlled with medications and that he was able to ambulate with crutches during PT session. Pt to be discharged home with Colchicine and Percocet and will continue home medications. Discharge Exam - Head Exam Head Exam: ATRAUMATIC, NORMOCEPHALIC - Eye Exam Eye Exam: EOMI, PERRL Pupil Exam: NORMAL ACCOMODATION - ENT Exam ENT Exam: Mucous Membranes Moist - Neck Exam Neck exam: Full Rom - Respiratory Exam Respiratory Exam: Clear to PA & Lateral. absent: Rales, Rhonchi, Wheezes - Cardiovascular Exam Cardiovascular Exam: RRR, +S1, +S2. absent: Diastolic murmur, Gallop, Rubs, Systolic Murmur - GI/Abdominal Exam GI & Abdominal Exam: Soft. absent: Distended, Guarding, Tenderness - Extremities Exam Additional comments: Right ankle wrapped and splinted s/p ORIF. Left knee swelling and tenderness decreased from yesterday. Pt ambulates with crutches. - Neurological Exam Neurological exam: Alert, Oriented x3 - Skin Skin Exam: Dry, Intact, Normal Color, Warm Discharge Plan - Discharge Medications Prescriptions: Colchicine 0.6 mg PO DAILY #15 tablet oxyCODONE/Acetaminophen [Percocet 5/325 mg Tab] 1 tab PO Q6H PRN #10 tab PRN Reason: Pain, Moderate (4-7) - Follow Up Plan Condition: STABLE Disposition: HOME/ ROUTINE Instructions: Pneumococcal Vaccine for Adults (DC), Ankle Fracture (DC), Crutch Instructions (DC), Heart Healthy Diet (DC), Gout (DC), ORIF of an Ankle Fracture (DC) Additional Instructions: -Take medications as instructed -Follow up with out-patient physical therapy for treatment and evaluation -Follow up with Dr. Sky as scheduled -Follow up with PMD within 2-3 days -Return to Local ER if symptoms worsen. Referrals: Raul Sky DO [Staff Provider] - PCP,BIMAL [Primary Care Provider] - <Jenise Fulton - Last Filed: 04/27/17 08:00> Provider - Provider Date of Admission: 04/24/17 14:51 Attending physician: Jenise Fulton MD Primary care physician: BIMAL PRIMARY CARE PROVIDER Hospital Course - Lab Results Lab Results: Micro Results 04/25/17 12:49 Other: Please Indicate Gram Stain - Final 04/25/17 12:49 Other: Please Indicate Body Fluid Culture - Preliminary NO GROWTH AFTER 24 HOURS Most Recent Lab Values WBC 12.8 10^3/ul (4.5-11.0) H 04/26/17 09:50 RBC 4.54 10^6/uL (3.5-6.1) 04/26/17 09:50 Hgb 13.4 gm/dL (14.0-18.0) L 04/26/17 09:50 Hct 39.8 % (42.0-52.0) L 04/26/17 09:50 MCV 87.7 fL (80.0-105.0) 04/26/17 09:50 MCH 29.5 pg (25.0-35.0) 04/26/17 09:50 MCHC 33.7 g/dl (31.0-37.0) 04/26/17 09:50 RDW 13.9 % (11.5-14.5) 04/26/17 09:50 Plt Count 292 10^3/uL (120.0-450.0) 04/26/17 09:50 MPV 9.9 fl (7.0-11.0) 04/26/17 09:50 Gran % 79.7 % (50.0-68.0) H 04/24/17 12:10 Lymph % (Auto) 11.0 % (22.0-35.0) L 04/24/17 12:10 [place] % (Auto) 5.7 % (1.0-6.0) 04/24/17 12:10 Eos % (Auto) 3.5 % (1.5-5.0) 04/24/17 12:10 Baso % (Auto) 0.1 % (0.0-3.0) 04/24/17 12:10 Gran # 9.08 (1.4-6.5) H 04/24/17 12:10 Lymph # 1.3 (1.2-3.4) 04/24/17 12:10 [place] # 0.7 (0.1-0.6) H 04/24/17 12:10 Eos # 0.4 (0.0-0.7) 04/24/17 12:10 Baso # 0.01 K/mm3 (0.0-2.0) 04/24/17 12:10 PT 11.1 Seconds (9.9-11.8) 04/24/17 12:10 INR 1.03 (0.93-1.08) 04/24/17 12:10 APTT 30.3 Seconds (23.7-30.8) 04/24/17 12:10 Sodium 137 mmol/L (132-148) 04/26/17 09:50 Potassium 3.9 mmol/L (3.6-5.0) 04/26/17 09:50 Chloride 95 mmol/L (98-107) L 04/26/17 09:50 Carbon Dioxide 29 mmol/L (21-33) 04/26/17 09:50 Anion Gap 17 (10-20) 04/26/17 09:50 BUN 13 mg/dL (7-21) 04/26/17 09:50 Creatinine 1.0 mg/dL (0.5-1.4) 04/26/17 09:50 Est GFR ( Amer) > 60 04/26/17 09:50 Est GFR (Non-Af Amer) > 60 04/26/17 09:50 Random Glucose 138 mg/dL (70-110) H 04/26/17 09:50 Calcium 9.9 mg/dL (8.4-10.5) 04/26/17 09:50 Total Bilirubin 0.5 mg/dL (0.2-1.3) 04/24/17 12:10 AST 31 U/L (15-59) 04/24/17 12:10 ALT 36 U/L (7-56) 04/24/17 12:10 Alkaline Phosphatase 56 U/L (38-133) 04/24/17 12:10 Total Protein 8.7 g/dL (5.8-8.3) H 04/24/17 12:10 Albumin 4.4 g/dL (3.0-4.8) 04/24/17 12:10 Globulin 4.3 gm/dL 04/24/17 12:10 Albumin/Globulin Ratio 1.0 (1.1-1.8) L 04/24/17 12:10 Attending/Attestation - Attestation I have personally seen and examined this patient.: Yes I have fully participated in the care of the patient.: Yes I have reviewed all pertinent clinical information, including history, physical exam and plan: Yes Notes (Text): 04/27/17 07:59 Attending note; Patient seen and examined with the resident. Patient is a 51 year old male with past medical history of hypertension, asthma and recent right ankle fracture presents s/p fall with left knee pain. Left knee xray is negative. Status post ORIF right ankle yesterday. Pain is improving. PT evaluation appreciated. Prescription for outpatient PT given. Case discussed with case fitter. left knee pain .status post steroidal injection in the left knee . Started on colchicine. Continue Motrin/Percocet as needed. Upon discharge the patient will follow[place]up with [facility]. Follow-up with orthopedics Dr. Sky. Diagnosis; Status post ORIF right ankle Left knee pain Hypertension 04/27/17 08:00
== END 2017-04-26 17:18 | disposition home or self-care (01) ==
LOC: ED 11:38 → ERH 14:51 → 5RNO 18:10
PROVIDERS: ADMIT Internal Medicine; ATTEND Internal Medicine
DX: S82.841A Displaced bimalleolar fracture of right lower leg, initial encounter for closed fracture (principal); M10.9 Gout, unspecified; D72.829 Elevated white blood cell count, unspecified; I10 Essential (primary) hypertension; J45.909 Unspecified asthma, uncomplicated; Z79.899 Other long term (current) drug therapy; Z88.0 Allergy status to penicillin; M25.562 Pain in left knee; W01.0XXA Fall on same level from slipping, tripping and stumbling without subsequent striking against object, initial encounter; Y92.9 Unspecified place or not applicable; Z23 Encounter for immunization; Z80.1 Family history of malignant neoplasm of trachea, bronchus and lung; Z82.49 Family history of ischemic heart disease and other diseases of the circulatory system
CPT/HCPCS: 27814; 36415; 71010; 73562; 76000; 80048; 80053; 85025; 85027; 85610; 85730; 87070; 89060; 90732; 93005; 96372; 96374; 96375; 96376; 97116; 97162; 97530; 99285; C1713; G0009; G0378; G8978; G8979; J0330; J1030; J1170; J1644; J1885; J2175; J2250; J2270; J2405; J2704; J2710; J2765; J3010